=== PATIENT | female | born 1980 | race Caucasian/White ===

== ENCOUNTER 2018-09-14 18:57 | Outpatient (REF) | payer BC, SELFPAY ==
[2018-09-14 19:20] LABS: HCT 40.8 % (36.0-46.0); HGB 14.1 g/dL (12.0-15.5); Mean Corp. HGB Concentration 34.6 g/dL (32.0-36.0); Mean Corpuscular Hemoglobin 30.7 pg (27.0-33.0); Mean Corpuscular Volume 88.9 fL (80-95); Mean Platelet Volume 9.4 fL (8.0-11.0); Platelet Count 313 x1000/uL (130-400); RBC 4.59 m/cumm (4.00-5.20); White Blood Cell Count 6.77 k/cumm (4.4-10.8)
[2018-09-14 19:45] LABS: TSH (W/Ref FT4) 3.39 uIU/mL (0.358-3.74)
== END 2018-09-14 19:17 ==
LOC: NCHCN 18:57
PROVIDERS: PCP Physician Assistant Medical; Visit Provider Physician Assistant Medical
DX: R94.6 Abnormal results of thyroid function studies (principal); D50.9 Iron deficiency anemia, unspecified
CPT/HCPCS: 85027; 84443

== ENCOUNTER 2019-05-31 15:49 | Outpatient (REF) | payer BC, SELFPAY | END 2019-05-31 16:09 | LOC: NCHCN 15:49 | PROVIDERS: PCP Physician Assistant Medical; Visit Provider Family Medicine | DX: J02.9 Acute pharyngitis, unspecified (principal) | CPT/HCPCS: 87070 ==

== ENCOUNTER 2019-07-08 11:12 | Outpatient (REF) | payer BC, SELFPAY ==
[2019-07-08 22:12] LABS: Anion Gap 8.8 mmol/L (3-11); BUN 10 mg/dL (7-18); CO2 30.2 mmol/L (21.0-32.0); Calcium 9.2 mg/dL (8.5-10.1); Chloride 102 mmol/L (98-107); Glucose 146 mg/dL (70-100); Potassium 4.5 mmol/L (3.5-5.1); Sodium 141 mmol/L (136-145)
== END 2019-07-08 11:32 ==
LOC: NCHCO 11:12
PROVIDERS: PCP Physician Assistant Medical; Visit Provider Physician Assistant Medical
DX: E28.2 Polycystic ovarian syndrome (principal)
CPT/HCPCS: 80048

== ENCOUNTER 2019-12-09 12:36 | Outpatient (REF) | payer BC, SELFPAY ==
[2019-12-09 19:29] LABS: Abs Immature Grans 0.02 k/cumm (0.0-0.09); Absolute Basophil Count 0.05 k/cumm (0.0-0.2); Absolute Eosinophil Count 0.31 k/cumm (0.0-0.7); Absolute Lymphocyte Count 2.53 k/cumm (1.2-3.4); Absolute Monocyte Count 0.54 k/cumm (0.11-0.7); Absolute Neutrophil Count 8.87 k/cumm (1.2-6.7); Basophils % 0.4; Eosinophils % 2.5; HCT 42.5 % (36.0-46.0); HGB 13.8 g/dL (12.0-15.5); Immature Grans % 0.2 %; Lymphocytes % 20.5; Mean Corp. HGB Concentration 32.5 g/dL (32.0-36.0); Mean Corpuscular Hemoglobin 28.6 pg (27.0-33.0); Mean Corpuscular Volume 88.2 fL (80-95); Mean Platelet Volume 9.3 fL (8.0-11.0); Monocytes % 4.4; Platelet Count 459 x1000/uL (130-400); RBC 4.82 m/cumm (4.00-5.20); RBC Distribution Width 13.5 % (11.7-14.6); White Blood Cell Count 12.32 k/cumm (4.4-10.8)
[2019-12-09 19:48] LABS: ALT 26 U/L (14-59); AST 22 U/L (15-37); Albumin 3.9 g/dL (3.4-5.0); Alkaline Phosphatase 84 U/L (46-116); Anion Gap 9.4 mmol/L (3-11); BUN 11 mg/dL (7-18); Bilirubin, Total 0.3 mg/dL (0.2-1.0); CO2 28.6 mmol/L (21.0-32.0); Calcium 9.6 mg/dL (8.5-10.1); Chloride 105 mmol/L (98-107); Glucose 126 mg/dL (74-106); Potassium 4.4 mmol/L (3.5-5.1); Sodium 143 mmol/L (136-145); TSH (W/Ref FT4) 2.94 uIU/mL (0.36-3.74); Total Protein 7.2 g/dL (6.4-8.2)
[2019-12-09 20:28] LABS: Hemoglobin A1C 6.9 % (3.8-5.6)
== END 2019-12-09 12:56 ==
LOC: NCHCN 12:36
PROVIDERS: PCP Physician Assistant Medical; Visit Provider Physician Assistant Medical
DX: E11.9 Type 2 diabetes mellitus without complications (principal); R94.6 Abnormal results of thyroid function studies
CPT/HCPCS: 80053; 83036; 84443; 85025

== ENCOUNTER → 2020-07-02 21:16 | Outpatient (REF) | payer BC, SELFPAY | LOC: NCHCN 21:16 | PROVIDERS: PCP Physician Assistant Medical; Visit Provider Family Medicine | DX: R39.15 Urgency of urination (principal) | CPT/HCPCS: 87077; 87086; 87186 ==

== ENCOUNTER 2020-12-21 01:51 | Emergency (ER) | payer BC, SELFPAY ==
[2020-12-21] VITALS (46 sets, daily range): BP systolic 117–138; BP diastolic 73–86; PULSE 118–149; RESP 10–126; TEMP 38.3–39.1; O2SAT 92–100
--- NOTE | 2020-12-21 01:45 | RT.EKG_ITS ---
APPROVED REPORT Exam: Resting ECG Patient Location: E HR:139 bpm ECG Measurements Heart Rate 139 AXIS MA 107 P 71 QRSd 156 QRS 47 QT 328 T 17 QTc 499 Conclusion Sinus tachycardia...rate> 99 Right bundle branch block...QRSd>120, terminal axis(90,270) ST depr, consider ischemia, anterolateral lds...ST <-0.10mV, I aVL V2-V6, possible rate related I have reviewed and interpreted ECG and agree with software generated interpretation.
--- NOTE | 2020-12-21 02:00 | DI.CT_ITS ---
EXAM: CT HEAD WO CLINICAL HISTORY: new onset seizure. TECHNIQUE: Imaging Protocol: Axial computed tomography images with coronal and sagittal reformatted images were created and reviewed COMPARISON: No exams were available for comparison FINDINGS: Images of this study are degraded by motion artifact. There are no obvious skull fractures nor fluid in the visualized paranasal sinuses. There is no evidence of intracranial hemorrhage, mass effect, or shift of midline structures. There are no extra-axial fluid collections. The ventricles are not enlarged or shifted and there is no blo od within the ventricular system nor within the basal cisterns. IMPRESSION: Suboptimal study due to motion. However, there are no obvious acute intracranial findings on this no ninfused CT scan of the brain. RADIATION DOSE DELIVERED: 1,280.15mGy.cm Total DLP DATA REPOSITORY: All CT scans at this facility are submitted to the National Radiology Data Registry (NRDR) Dose Index Registry (DIR) with the [employer] (A[employer]). RADIATION OPTIMIZATION: All CT scans at this facility use at least one of these dose optimization te chniques: automated exposure control; mA and/or kV adjustment per patient size (includes targeted exa ms where dose is matched to clinical indication); or iterative reconstruction.
--- NOTE | 2020-12-21 02:02 | W.ED.GENAD ---
Discharge Plan Disposition Patient Disposition: [facility] Condition: Stable Discharge Details Clinical Impression: Serotonin syndrome Primary Care Provider: Ru White ED Provider: Braeden Jeronimo [place] Meds and New Rx's Prescriptions: No Action metformin 500 MG tablet 500 mg PO BID RF: 0 venlafaxine 75 MG tablet 150 mg PO DAILY RF: 0 Bariatric Vitamin 3 tab PO DAILY RF: 0 Vaniqa 13.9 % Cream 1 applic TOPICAL BID RF: 0 multivitamin with minerals [One A Day W/Minerals] Tablet 1 tab PO DAILY RF: 0 spironolactone 50 mg Tablet 50 mg PO DAILY RF: 0 Vitamin B-12 Tablet,Chewable 1 tab PO Q OTHER DAY PRNRF: 0 bupropion HCl 150 mg Tablet Extended Release 24 Hr 150 mg PO BID RF: 0 calcium citrate-vitamin D3 315 mg-6.25 mcg (250 unit) Tablet 2 tab PO BID RF: 0 Complete Multivitamin-Mineral 9 mg iron/15 mL Liquid 15 ml PO BID RF: 0 Medical Decision Making Medical Records Medical records narrative: Patient found to be febrile, tachycardic, altered, with bilateral lower extremity rigidity and clonus as well as ocular findings. I called the who reports that she was fine throughout the day. She had a couple of drinks in the afternoon. She had gone to bed with him but was having difficulty sleeping, complained of feeling hot and complained of being unable to control her legs. She decided to go out for a cigarette but he followed because he felt like something was abnormal. Once outside she had a seizure. He is not sure of her medications but will assure that there has not been any change in dosing. Primary care is at [facility]. We were able to access that system. Patient currently on buspirone and venlafaxine. I feel that this is likely serotonin syndrome. IV fluids started. 1 mg aliquots of Ativan given as needed. Laboratory studies sent. Temperature sensing Rock placed. Head CT obtained. Call placed to [facility] for transfer. Patient laboratory studies show white count of 13.4, anion gap of 19 with a bicarb of 20. Glucose 181 with history of type 2 diabetes. CPK 205. TSH 19 but free T4 normal. Patient does have history of elevated TSH. Tylenol and alcohol negative. Aspirin mildly up at 7. Unknown if she took aspirin today or not. Urine drug screen negative. Urinalysis negative CT head normal. Discussed with ICU team at [facility]. Agree with working diagnosis of serotonin syndrome. Patient accepted for transfer for further management. Due to altered mental status and likely ongoing need for repeat benzodiazepine use, we felt intubation for airway protection appropriate. This was done by me on first attempt with no complications. Please see procedure note post intubation chest x-ray shows ET tube to be a little low and has been pulled back by respiratory. NG tube which had been placed by me needed to be advanced another 5 to 10 cm. I have updated the . Covid swab has been sent and is negative patient will be maintained on Versed and fentanyl drips for sedation ABG is pending. Heart rate has come down to the 120 range. Fluids are going. Helicopter is not flying but because patient is intubated we do not have ability to transport with medics until 7 AM. [facility] will therefore send ground crew. While getting the ABG in the left arm, we noticed what appeared to be 1-2 day old superficial lacerations on her wrist consistent with self cutting. was not aware of anything like this. In speaking to the further, as I had him come back to see his before she went to [facility], he did not spend the day with her as we originally had thought. She wanted to be alone today and went to her brother's grave. He apparently when he was a teenager. I would therefore be a little concerned that this was intentional overdose. I have also noted that her urine is now very hazy and cloudy with significant sediment. I will send this for culture. I have called and updated the ICU fellow at [facility]. As she remained hemodynamically stable we will hold off on antibiotics as this may be sediment related to acute kidney injury. Lab Data Lab results reviewed: Yes I reviewed the patient's lab results. ECG Data Attestation: I personally reviewed and interpreted this ECG (s) as follows: Interpretation: See EKG HPI General Mode of arrival: EMS. Date/Time Provider Initiated Documentation: 12/21/20 01:59. Limitations to Documentation: altered mental status. Information obtained by: family and EMS. HPI Narrative: Patient brought in by ambulance for possible seizure. Patient unable to provide meaningful history due to altered mental status. Per EMS called 911 for seizure. Patient has no history of seizures. She had gone outside for cigarette when she became unresponsive and rigid. On EMS arrival she was no longer unresponsive but she was altered. She was found to be tachycardic and diaphoretic. She remained altered but was able to provide slight history on arrival. She had no complaint of pain per the nurse. I was called into the room for another apparent seizure. Related Data Home Medications Medication Instructions Recorded Confirmed Bariatric Vitamin 3 tab PO DAILY 01/16/18 metformin 500 mg PO BID 01/16/18 12/21/20 venlafaxine 150 mg PO DAILY 01/16/18 12/21/20 bupropion HCl 150 mg PO BID 12/21/20 12/21/20 calcium citrate-vitamin D3 2 tab PO BID 12/21/20 12/21/20 cyanocobalamin (vitamin B-12) 1 tab PO Q OTHER DAY PRN 12/21/20 12/21/20 [Vitamin B-12] eflornithine [Vaniqa] 1 applic TOPICAL BID 12/21/20 12/21/20 [id number]-[id number] fumarate 15 ml PO BID 12/21/20 12/21/20 [Complete Multivitamin-Mineral] multivitamin with minerals [One A 1 tab PO DAILY 12/21/20 12/21/20 Day W/Minerals] spironolactone 50 mg PO DAILY 12/21/20 12/21/20 Allergies Allergy/AdvReac Type Severity Reaction Status Date / Time acetaminophen Allergy Severe Facial Unverified 02/01/18 11:11 Swelling Review of Systems Unobtainable due to mental status [facility] Medical History (Updated 12/21/20 @ 04:50 by Braeden Jeronimo MD) Anxiety and depression Diabetes mellitus PCOS (polycystic ovarian syndrome) Surgical History (Updated 12/21/20 @ 02:52 by Braeden Jeronimo MD) History of bariatric surgery S/P hysterectomy Social History Smoking/Tobacco Use Status: Former Tobacco Use Smoking risk assessment performed?: Yes Drug use: Never Exam Narrative Exam Narrative: Const: WDWN female who is altered. HEENT: NC/AT. Normal facial exam. Eyes: Pupils are dilated and minimally reactive. She has disconjugate gaze. Neck: Supple. Trachea midline. Lungs: Normal respiratory effort. Lungs are clear. Cor: RRR without murmur/gallop. Tachycardic. Good radial pulses. GI: Soft. ND. Neuro: Awake and semiresponsive but altered. Minimally reactive pupils with disconjugate gaze and roving eye movement. Upper extremities appear normal. Bilateral lower extremities are rigid with clonus present and toes and feet flexed. Ext: No C/C/E. Skin: Warm diaphoretic without rash. Procedures Intubation Time out performed: Yes sedative: Etomidate Mg Given: 20 paralytic: Rocuronium Mg Given: 100 Laryngoscope: fiberoptic video scope ET Tube Size: 7.5 ET Tube Uncuffed: Yes Tube Secured Depth (cm): 25 Tube Secured Location: teeth Tube Placement Confirmation: visualized tube passing through cords, equal breath sounds bilaterally and confirmation by capnometry Patient Tolerated Procedure: well and no complications Intubation Complications: none Critical Care Time Critical Care Time Critical Care Time: Yes Total Critical Care Time: 60 Attestation: Upon my evaluation, this patient had a high probability of imminent or life-threatening deterioration, which required my direct attention, intervention, and personal management. I have personally provided 60 minutes of critical care time exclusive of time spent on separately billable procedures. Time includes review of laboratory data, radiology results, discussion with consultants, and monitoring for potential decompensation. Interventions were performed as documented above.
[2020-12-21] MEDS: LORazepam 2 MG/ML VIAL 1 MG IVP ×5 (02:03→03:05)
[2020-12-21 02:13] LABS: Abs Immature Grans 0.04 10^3/uL (0.0-0.06); Absolute Basophil Count 0.13 10^3/uL (0.0-0.2); Absolute Lymphocyte Count 1.57 10^3/uL (1.2-3.4); Absolute Monocyte Count 0.63 10^3/uL (0.1-0.8); Absolute Neutrophil Count 10.93 10^3/uL (1.2-6.7); HCT 42.5 % (36.0-46.0); HGB 13.3 g/dL (11.2-15.7); Immature Grans % 0.3; Lymphocytes % 11.7; MCHC 31.3 % (32.0-36.0); MCV 86.2 fL (80-95); MPV 9.2 fL (8.0-11.0); Monocytes % 4.7; Neutrophils % 81.3; Nucleated RBC 0 %; Platelet Count 372 10^3/uL (130-400); RBC 4.93 10^6/uL (3.93-5.22); RDW 13.5 % (11.7-14.6); RDW-SD 42.7 fL; WBC 13.44 10^3/uL (4.4-10.8)
[2020-12-21 02:15] LABS: Absolute Eosinophil Count 0.13 10^3/uL (0.0-0.7)
--- NOTE | 2020-12-21 02:15 | NUR.NOTE ---
Nursing Note:Upon arrival to the ER patient able to answer basic questions ie. weight, height. Patient able to help get her shirt off and put gown on. Patient then pointed up to the surgical lights on the ceiling and began to have a seizure. Patients arms and legs very rigid arms went back down to patients side but extremities remained very rigid. No incontinence or vomiting.
--- NOTE | 2020-12-21 02:27 | NUR.NOTE ---
accessed [facility] for med list and problem list per Dr. Jeronimo.Nursing Note:
[2020-12-21 02:30] LABS: Bilirubin Negative (Negative); Blood Trace-intact (Negative); Clarity Clear (Clear); Glucose Negative (Negative); Ketones Negative (Negative); Leukocyte Esterase Negative (Negative); Nitrite Negative (Negative); Specific Gravity >= 1.030 (1.005-1.025); Urobilinogen 0.2 EU/dL (Up TO 0.2); pH 5.5 (5-8)
[2020-12-21 02:36] LABS: Bacteria Few HPF (Negative); Epithelial Cells Many HPF (Negative); RBC 0-2 HPF (0-2); WBC Negative HPF (0-5)
[2020-12-21 02:37] LABS: C & S Indicated? No; Casts 3-5 Hyaline LPF (Negative); Crystals Rare Amorphous HPF (Negative); Mucus Negative (Negative)
[2020-12-21 02:41] LABS: ALT 21 U/L (14-59); AST 18 U/L (15-37); Albumin 3.9 g/dL (3.4-5.0); Alkaline Phosphatase 81 U/L (46-116); Anion Gap 19.2 mmol/L (3-11); BUN 12 mg/dL (7-18); Bilirubin, Total 0.2 mg/dL (0.2-1.0); CO2 19.8 mmol/L (21.0-32.0); CREATININE 1.3 mg/dL (0.55-1.02); Calcium 8.5 mg/dL (8.5-10.1); Chloride 106 mmol/L (98-107); Estimated GFR 45.14 (mL/min/1.73m2); Glucose 181 mg/dL (74-106); Magnesium 1.8 mg/dL (1.8-2.4); Potassium 4.6 mmol/L (3.5-5.1); Sodium 145 mmol/L (136-145); TSH 18.88 uIU/mL (0.36-3.74); Total Protein 7.7 g/dL (6.4-8.2)
[2020-12-21 02:42] LABS: ETHANOL BLOOD < 3.0 mg/dL (<3)
[2020-12-21 02:43] LABS: Creatine Kinase 205 U/L (26-192)
[2020-12-21 02:47] LABS: *AMPHETAMINES SCREEN URINE Negative (Negative); *BARBITURATES SCREEN URINE Negative (Negative); *BENZODIAZEPINES SCREEN URINE Negative (Negative); Cannabinoids THC Negative (Negative); Cocaine Screen,Urine Negative (Negative); METHADONE URINE SCREEN Negative (Negative); OPIATES URINE SCREEN Negative (Negative)
[2020-12-21 02:48] LABS: Tricyclic Antidepressants Negative (Negative)
[2020-12-21 02:50] LABS: Acetaminophen < 2 ug/mL (10-30); Salicylate 7.4 mg/dL (<2.8)
--- NOTE | 2020-12-21 02:55 | DI.VRAD_ITS ---
PROCEDURE INFORMATION: Exam: CT Head Without Contrast Exam date and time: 12/21/2020 2:02 AM Age: 40 years old Clinical indication: Other: New onset seizure TECHNIQUE: Imaging protocol: Computed tomography of the head without contrast. Radiation optimization: All CT scans at this facility use at least one of these dose optimization techniques: automated exposure control; mA and/or kV adjustment per patient size (includes targeted exams where dose is matched to clinical indication); or iterative reconstruction. COMPARISON: No relevant prior studies available. FINDINGS: Brain: Mild volume loss No hemorrhage. Unremarkable white matter. No mass effect. Cerebral ventricles: No ventriculomegaly. Bones/joints: Unremarkable. No acute fracture. Paranasal sinuses: Visualized sinuses are unremarkable. No fluid levels. Mastoid air cells: Visualized mastoid air cells are well aerated. Soft tissues: Unremarkable. IMPRESSION: No acute intracranial abnormality. Dictated and Authenticated by: Randal Olmos MD. Ordering:NOAH Deras MD
[2020-12-21 03:07] LABS: FREE T4 1.18 ng/dL (0.76-1.46)
[2020-12-21] MEDS: Lactated Ringers 1,000 ML 200 ML IV (03:11)
[2020-12-21] MEDS: Etomidate 20 MG/10 ML VIAL (03:46)
--- NOTE | 2020-12-21 04:00 | DI.RAD_ITS ---
EXAM: XR PORTABLE CHEST AP POST LINE CLINICAL HISTORY: intubated. TECHNIQUE: 2D digital imaging was performed. COMPARISON: No exams were available for comparison FINDINGS: Heart size is normal. The mediastinum is not widened. Lungs are clear. No infiltrates nor obvious pleural effusions. Distal tip of the endotracheal tube is in the origin of the right mainstem bronchus and should be ret racted 3 cm. Distal tip of the NG tube is at the GE junction should be advanced 5-10 cm. IMPRESSION: No acute pulmonary findings on this single AP portable view of the chest. Both the endotracheal and NG tube require repositioning, as described above. DATA REPOSITORY: RADIATION DOSE DELIVERED: All CT scans at this facility use at least one of these dose optimization techniques: automated exposure control; mA and/or kV adjustment per patient size (includes targeted e xams where dose is matched to clinical indication); or iterative reconstruction.
[2020-12-21 04:01] LABS: COVID-19 PCR Negative (Negative)
[2020-12-21] MEDS: Midazolam 2 MG/2 ML VIAL 5 MG IVP (04:05)
--- NOTE | 2020-12-21 04:20 | DI.VRAD_ITS ---
PROCEDURE INFORMATION: Exam: XR Chest Exam date and time: 12/21/2020 4:06 AM Age: 40 years old Clinical indication: Device placement; Patient HX: S/P intubation and ng TECHNIQUE: Imaging protocol: XR of the chest. Views: 1 view. COMPARISON: No relevant prior studies available. FINDINGS: Endotracheal tube extends to the right mainstem bronchus orifice. Enteric tube projects to the level of the gastroesophageal junction. Lungs: Chronic interstitial prominence. No consolidation. Pleural spaces: No pleural effusion. No pneumothorax. Heart/Mediastinum: No cardiomegaly. Bones/joints: Unremarkable. IMPRESSION: Endotracheal tube tip at the right mainstem bronchus orifice. Recommend withdrawing 3 cm Enteric tube at the gastroesophageal junction. Recommend advancing 5-10 cm Otherwise, no acute findings Dictated and Authenticated by: Randal Olmos MD. Ordering:NOAH Deras MD
[2020-12-21] MEDS: fentaNYL 1,000 MCG/20 ML VIAL 1000 MCG (04:40)
[2020-12-21 05:05] LABS: BE 0 mmol/L (-2-3); HCO3 26 mmol/L (22-26); pCO2 48 mmHg (35-45); pH 7.34 (7.35-7.45); pO2 281 mmHg (80-105); sO2 99 % (95-98); tCO2 24 mmol/L (23-27)
[2020-12-21 05:07] LABS: FIO2 80 %; Site Left Radial
--- NOTE | 2020-12-21 06:00 | RESPIRATORY ---
RT called for intubations on patient at 3:35am for airway protection. Rt arrived and set-up suction and Ambu-bag for preparation to intubate patient. Dr. Jeronimo intubated patient at 4:00am with 7.5 ETT using the CMAC with one attempt. Bilateral breath sounds heard and return CO2 was 52, RR 18 SpO2 100% on FiO2 100% for intubation. Settings on vent were: CMV+ VT 340 RR 15 FIO2 100% Peep 5. Pre-ABG, RR was changed to 18 from 15 to help assist in blowing off CO2 with patient being acidotic. Increase in RR did not help, suggested and agreed with RT to increase VT to 400 to help reduce CO2. ABG attempted by RT, Nursing Solar System Installer Ramona and then Nurse Cabrera who was able to obtain sample. ABG results were: 7.34/48/281/26 and RT reduced 02 till it reached 40% in which [facility] came to [place] [facility] Patient switched by [facility] to their LTV and transferred to [facility] for preparation [place] [facility] Patient left [facility] around 5:50am, RT ok to leave by Dr. Jeronimo.
== END 2020-12-21 05:40 | disposition short-term general hospital (02) ==
PROVIDERS: Emergency Provider Emergency Medicine; PCP Physician Assistant Medical
DX: T43.221A Poisoning by selective serotonin reuptake inhibitors, accidental (unintentional), initial encounter (principal); R56.9 Unspecified convulsions; Z20.822 Contact with and (suspected) exposure to COVID-19
CPT/HCPCS: 31500; 51702; 71045; 80053; 80307; 82550; 82805; 87635; 93005; 96361; 96374; 96375; 96376; 99291; 36600; 70450; 80320; 80329; 81003; 81015; 83735; 84439; 84443; 85025; 87086; 93010; J2060; J2250; J3010; J3490

== ENCOUNTER 2021-06-23 16:04 | Outpatient (REF) | payer BC, SELFPAY ==
[2021-06-25 10:24] LABS: COVID-19 RT-PCR UVMMC Result Negative (Negative)
== END 2021-06-23 16:05 | disposition home or self-care (01) ==
LOC: LBN 16:04
PROVIDERS: Visit Provider Family Medicine
DX: Z20.822 Contact with and (suspected) exposure to COVID-19 (principal)
CPT/HCPCS: U0003

== ENCOUNTER 2022-05-04 20:04 | Outpatient (REF) | payer BC, SELFPAY ==
[2022-05-04 21:22] LABS: Abs Immature Grans 0.02 10^3/uL (0.0-0.06); Absolute Basophil Count 0.14 10^3/uL (0.0-0.2); Absolute Eosinophil Count 0.99 10^3/uL (0.0-0.7); Absolute Lymphocyte Count 3.34 10^3/uL (1.2-3.4); Absolute Neutrophil Count 5.11 10^3/uL (1.2-6.7); Basophils % 1.4; Eosinophils % 9.6; HCT 34.3 % (36.0-46.0); HGB 10.7 g/dL (11.2-15.7); Hemoglobin A1C 6.7 % (<5.7); Immature Grans % 0.2; Lymphocytes % 32.4; MCH 23.8 pg (27.0-33.0); MCHC 31.2 % (32.0-36.0); MCV 76 fL (80-95); MPV 9.5 fL (8.0-11.0); Monocytes % 6.8; Neutrophils % 49.6; Platelet Count 399 10^3/uL (130-400); RBC 4.49 10^6/uL (3.93-5.22); RDW 16.8 % (11.7-14.6); RDW-SD 45.9 fL
[2022-05-04 21:30] LABS: Iron 13 ug/dL (50-170); Total Iron Binding Capacity 393 ug/dL (250-450); Transferrin Sat 3 % (15-50)
[2022-05-04 21:46] LABS: ALT 21 U/L (14-59); AST 23 U/L (15-37); Albumin 3.4 g/dL (3.4-5.0); Alkaline Phosphatase 63 U/L (46-116); Anion Gap 9.7 mmol/L (3-11); BUN 14 mg/dL (7-18); Bilirubin, Total 0.1 mg/dL (0.2-1.0); CO2 27.3 mmol/L (21.0-32.0); CREATININE 0.8 mg/dL (0.55-1.02); Calcium 8.6 mg/dL (8.5-10.1); Calculated LDL 103 mg/dL (<100); Chloride 103 mmol/L (98-107); Cholesterol 173 mg/dL (<200); Ferritin 9 ng/mL (8-252); Glucose 180 mg/dL (74-106); HDL Cholesterol 55 mg/dL (40-60); Potassium 3.9 mmol/L (3.5-5.1); Sodium 140 mmol/L (136-145); Triglyceride 77 mg/dL (<150); Vitamin B12 337 pg/mL (193-986)
[2022-05-05 05:39] LABS: Vitamin D 25 Total 40.9 ng/mL (30-100)
[2022-05-06 09:34] LABS: Prealbumin 25 mg/dL (20-40)
== END 2022-05-04 20:05 | disposition home or self-care (01) ==
LOC: LBN 20:04
PROVIDERS: PCP Physician Assistant Medical; Visit Provider Physician Assistant Medical
DX: E11.9 Type 2 diabetes mellitus without complications (principal); Z98.84 Bariatric surgery status
CPT/HCPCS: 80053; 80061; 82306; 82607; 82728; 82746; 83036; 83540; 83550; 84134; 85025